=== PATIENT | female | born 1990 | race Hispanic/Latino ===

== ENCOUNTER 2022-06-05 19:04 | Emergency (ER) | payer OTHER, MEDICAID ==
[~2022-06-05] VITALS: Ht 167.6 cm; Wt 63.0 kg
[2022-06-05] MEDS ORDERED: ONDANSETRON ODT 4MG TAB SL ONE (20:00)
[2022-06-05 20:05] LABS: APPEARANCE,URINE CLEAR (CLEAR); BILIRUBIN,URINE NEGATIVE (NEGATIVE); COLOR,URINE YELLOW (YELLOW); GLUCOSE, URINE (UA) NEGATIVE (NEGATIVE); KETONES,URINE 150 mg/dL (NEGATIVE); LEUKOCYTE ESTERASE ,URINE NEGATIVE Leu/uL (NEGATIVE); NITRATE,URINE NEGATIVE (NEGATIVE); OCCULT BLOOD,URINE NEGATIVE (NEGATIVE); PROTEIN,URINE 30 mg/dL (NEGATIVE)
[2022-06-05 20:10] LABS: MUCUS,URINE MANY LPF (None Seen); RBC,URINE 0-1 /HPF (0-1); SQUAMOUS EPITHELIAL CELL,UR RARE /HPF (0-2)
[2022-06-05 20:42] LABS: BASOPHILS % (AUTO) 0.4 % (0.0-5.0); EOSINOPHILS % (AUTO) 0.9 % (0.0-8.0); HEMATOCRIT 38.2 % (36-48); LYMPHOCYTES % (AUTO) 21.2 % (21.0-51.0); MEAN CORPUSCULAR HEMOGLOBIN 28.7 pg (27.0-33.0); MONOCYTES % (AUTO) 7.6 % (3.0-13.0); NEUTROPHILS % (AUTO) 69.6 % (40.0-77.0); PLATELET COUNT (AUTO) 186 K/uL (130-400); RED BLOOD CELL COUNT(AUTO) 4.39 MIL/uL (4.00-5.50); RED CELL DISTRIBUTION WIDTH 13.3 % (11.0-15.5); WHITE BLOOD COUNT (AUTO) 6.7 K/uL (4.8-10.8)
[2022-06-05 20:52] LABS: CREATININE 0.6 mg/dL (0.5-1.5); POTASSIUM 3.6 mmol/L (3.5-5.1)
[2022-06-05 21:18] LABS: ALBUMIN 3.6 g/dL (3.5-5.0); TOTAL PROTEIN, SERUM 7.1 g/dL (6.0-8.3)
[2022-06-05 22:53] VITALS: BP 114/68
[2022-06-05] MEDS ORDERED: METO10TA41 PO (22:54)
== END 2022-06-05 23:00 | disposition home or self-care (01) ==
LOC: EDH 19:04
DX: O26.891 Other specified pregnancy related conditions, first trimester (principal); R10.30 Lower abdominal pain, unspecified; O21.9 Vomiting of pregnancy, unspecified
CPT/HCPCS: 36415; 76801; 80053; 81001; 84702; 85025

== ENCOUNTER 2022-12-27 22:18 | Observation (INO) | payer BC, MEDICAID ==
[~2022-12-27] VITALS: Ht 167.6 cm; Wt 80.7 kg
[~2022-12-27 22:18] MED LIST: METO10TA41 PO
[2022-12-27 22:20] VITALS: BP 114/72; PULSE 82; RESP 16
[2022-12-27 22:51] LABS: APPEARANCE,URINE CLOUDY (CLEAR); BILIRUBIN,URINE NEGATIVE (NEGATIVE); COLOR,URINE LIGHT-YELLOW (YELLOW); GLUCOSE, URINE (UA) NEGATIVE (NEGATIVE); KETONES,URINE 40 mg/dL (NEGATIVE); LEUKOCYTE ESTERASE ,URINE 250 Leu/uL (NEGATIVE); NITRATE,URINE NEGATIVE (NEGATIVE); OCCULT BLOOD,URINE NEGATIVE (NEGATIVE); PH,URINE 6.5 (5.0-8.0); PROTEIN,URINE NEGATIVE (NEGATIVE); UROBILINOGEN,URINE 0.2 mg/dL (0.2-1.0)
[2022-12-27 22:57] LABS: ADD UA MICROSCOPIC YES
[2022-12-27 22:58] LABS: AMPHET/METH SCREEN,URINE NEGATIVE (NEGATIVE); BARBITURATE SCREEN, URINE NEGATIVE (NEGATIVE); BENZODIAZEPINES SCREEN,URINE NEGATIVE (NEGATIVE); CANNABINOID SCREEN,URINE NEGATIVE (NEGATIVE); COCAINE SCREEN,URINE NEGATIVE (NEGATIVE); OPIATE SCREEN,URINE NEGATIVE (NEGATIVE); PHENCYCLIDINE SCREEN,URINE NEGATIVE (NEGATIVE)
[2022-12-27 23:00] LABS: BACTERIA,URINE MOD /HPF (None Seen); MUCUS,URINE RARE LPF (None Seen); SQUAMOUS EPITHELIAL CELL,UR MOD /HPF (0-2)
[2022-12-27] MEDS ORDERED: LACTATED RINGERS 1000ML IV PRN (23:00)
== END 2022-12-28 01:35 | disposition home or self-care (01) ==
LOC: EDH 22:18 → LDH 22:19
PROVIDERS: ADMIT Obstetrics & Gynecology; ATTEND Obstetrics & Gynecology
DX: O62.9 Abnormality of forces of labor, unspecified (principal); Z79.899 Other long term (current) drug therapy; Z3A.37 37 weeks gestation of pregnancy
CPT/HCPCS: 80305; 87088; 81001; 96360; G0378 ×3; G0379; J7120

== ENCOUNTER 2023-01-27 19:54 | Emergency (ER) | payer BC, MEDICAID ==
[~2023-01-27] VITALS: Ht 167.6 cm; Wt 71.7 kg
[~2023-01-27 19:54] MED LIST changes: -METO10TA41 PO; +PREN-134 PO
[2023-01-27] MEDS ORDERED: CEPH500T PO (20:45)
[2023-01-27] MEDS ORDERED: CEPHALEXIN 500 MG CAPSULE PO ONE (21:00)
[2023-01-27] MEDS ORDERED: ACETAMINOPHEN 325 MG TAB PO ONE (21:00)
[2023-01-27 21:05] VITALS: TEMP 101
[2023-01-27 21:09] VITALS: BP 110/62; PULSE 110; RESP 20; O2SAT 100
== END 2023-01-27 21:11 | disposition home or self-care (01) ==
LOC: EDH 19:54
DX: N61.0 Mastitis without abscess (principal)

== ENCOUNTER 2023-05-29 19:01 | Emergency (ER) | payer BC, MEDICAID ==
[~2023-05-29] VITALS: Ht 167.6 cm; Wt 71.2 kg
[~2023-05-29 19:01] MED LIST changes: +CEPH500T PO
[2023-05-29 19:29] LABS: BASOPHILS # (AUTO) 0.02 K/uL (0.00-0.20); BASOPHILS % (AUTO) 0.3 % (0.0-5.0); EOSINOPHILS # (AUTO) 0.08 K/uL (0.00-0.70); EOSINOPHILS % (AUTO) 1.1 % (0.0-8.0); HEMATOCRIT 38.3 % (36-48); IMMATURE GRANULOCYTE ABSOLUTE 0.01 K/uL (0-1); LYMPHOCYTES # (AUTO) 1.4 K/uL (1.0-4.8); LYMPHOCYTES % (AUTO) 20.5 % (21.0-51.0); MEAN CORPUSCULAR HEMOGLOBIN 28.4 pg (27.0-33.0); MEAN CORPUSCULAR HGB CONC 32.4 g/dL (32.0-36.0); MEAN CORPUSCULAR VOLUME 87.6 fL (79-99); MONOCYTES # (AUTO) 0.6 K/uL (0.1-1.0); MONOCYTES % (AUTO) 8.4 % (3.0-13.0); NEUTROPHILS # (AUTO) 4.9 K/uL (1.8-7.7); NEUTROPHILS % (AUTO) 69.6 % (40.0-77.0); PLATELET COUNT (AUTO) 205 K/uL (130-400); RED BLOOD CELL COUNT(AUTO) 4.37 MIL/uL (4.00-5.50); RED CELL DISTRIBUTION WIDTH 13.6 % (11.0-15.5)
[2023-05-29 19:42] LABS: CREATININE 0.7 mg/dL (0.5-1.5); POTASSIUM 3.6 mmol/L (3.5-5.1)
[2023-05-29 19:46] LABS: ALBUMIN 3.7 g/dL (3.5-5.0); BILIRUBIN,TOTAL 0.3 mg/dL (0.2-1.0); TOTAL PROTEIN, SERUM 7.2 g/dL (6.0-8.3)
[2023-05-29] MEDS: DiphenhydrAMINE HCL 50 MG/ML VIAL IM ONE (22:55)
[2023-05-29] MEDS: FAMOTIDINE 20MG TAB PO ONE (22:55)
[2023-05-29] MEDS: SOLU-MEDROL 125MG VIAL IM ONE (22:56)
[2023-05-30 00:24] VITALS: BP 118/71; PULSE 82; RESP 16; O2SAT 97
[2023-05-30] MEDS ORDERED: FAMO-136 PO (00:56)
[2023-05-30] MEDS ORDERED: PRED20TA3 PO (00:56)
[2023-05-30] MEDS ORDERED: DIPH50 PO (00:56)
== END 2023-05-30 01:05 | disposition home or self-care (01) ==
LOC: EDH 19:01
DX: L50.8 Other urticaria (principal); T50.905A Adverse effect of unspecified drugs, medicaments and biological substances, initial encounter; L29.9 Pruritus, unspecified; Z79.899 Other long term (current) drug therapy; Y92.89 Other specified places as the place of occurrence of the external cause
CPT/HCPCS: 99284; 84484; 80053; 85025; 81025; 36415; 96372 ×2; 93005; J1200; J2930

== ENCOUNTER 2023-06-02 01:40 | Emergency (ER) | payer BC, MEDICAID ==
[~2023-06-02] VITALS: Ht 167.6 cm; Wt 72.6 kg
[~2023-06-02 01:40] MED LIST changes: +DIPH50 PO; +FAMO-136 PO; +PRED20TA3 PO
[2023-06-02] MEDS: EPINEPHRINE PF 1MG (1:1,000) 1 MG/ML AMP IM ONE ×2 (02:33→03:25)
[2023-06-02] MEDS: DiphenhydrAMINE HCL 50 MG/ML VIAL IV ONE (02:33)
[2023-06-02] MEDS: SOLU-MEDROL 125MG VIAL IVP ONE (02:33)
[2023-06-02 02:36] LABS: BASOPHILS # (AUTO) 0.02 K/uL (0.00-0.20); BASOPHILS % (AUTO) 0.2 % (0.0-5.0); EOSINOPHILS # (AUTO) 0.08 K/uL (0.00-0.70); EOSINOPHILS % (AUTO) 0.8 % (0.0-8.0); HEMATOCRIT 39.2 % (36-48); IMMATURE GRANULOCYTE ABSOLUTE 0.04 K/uL (0-1); LYMPHOCYTES # (AUTO) 2.3 K/uL (1.0-4.8); LYMPHOCYTES % (AUTO) 22.6 % (21.0-51.0); MEAN CORPUSCULAR HEMOGLOBIN 28.1 pg (27.0-33.0); MEAN CORPUSCULAR HGB CONC 32.1 g/dL (32.0-36.0); MEAN CORPUSCULAR VOLUME 87.3 fL (79-99); MONOCYTES % (AUTO) 9.6 % (3.0-13.0); NEUTROPHILS # (AUTO) 6.8 K/uL (1.8-7.7); NEUTROPHILS % (AUTO) 66.4 % (40.0-77.0); PLATELET COUNT (AUTO) 221 K/uL (130-400); RED BLOOD CELL COUNT(AUTO) 4.49 MIL/uL (4.00-5.50); RED CELL DISTRIBUTION WIDTH 14.2 % (11.0-15.5); WHITE BLOOD COUNT (AUTO) 10.3 K/uL (4.8-10.8)
[2023-06-02 02:48] LABS: CREATININE 0.6 mg/dL (0.5-1.0); POTASSIUM 4.7 mmol/L (3.5-5.1)
[2023-06-02 02:54] LABS: ALBUMIN 3.3 g/dL (3.5-5.0); BILIRUBIN,TOTAL 0.3 mg/dL (0.2-1.0); TOTAL PROTEIN, SERUM 7.1 g/dL (6.0-8.3)
[2023-06-02] MEDS ORDERED: EPIN0.3P3 IJ (04:39)
[2023-06-02] MEDS: EPINEPHRINE PF 1MG (1:1,000) 1 MG/ML AMP SQ ONE (04:53)
[2023-06-02 05:25] VITALS: BP 112/65; PULSE 76; RESP 14; O2SAT 98
== END 2023-06-02 05:27 | disposition home or self-care (01) ==
LOC: EDH 01:40
DX: T78.3XXA Angioneurotic edema, initial encounter (principal)
CPT/HCPCS: 99284; 96374; 96375; 80053; 85025; 36415; 96372 ×3; J1200; J2930; J0171 ×3